=== PATIENT | female | born 1950 | race Caucasian/White ===

== ENCOUNTER 2024-08-06 16:27 | Emergency (ER) | payer MEDICARE, OTHER ==
[~2024-08-06] VITALS: Ht 152.4 cm; Wt 49.0 kg
[2024-08-06 16:33] VITALS: BP 136/85; PULSE 98; RESP 16; TEMP 37.2; O2SAT 99
[2024-08-06 19:14] LABS: BASOPHILS % 0.6 % (0.0-2.0); EOSINOPHILS % 0.3 % (0.0-5.0); LYMPHOCYTES % 9.1 % (20.0-50.0); MEAN CORPUSCULAR HEMOGLOBIN 32.3 pg (28.0-32.0); MEAN CORPUSCULAR HGB CONC 34.1 g/dL (31.0-37.0); MEAN CORPUSCULAR VOLUME 94.6 fL (81.0-99.0); MEAN PLATELET VOLUME 7.8 fl (7.4-10.4); MONOCYTES % 3.8 % (2.0-8.0); NEUTROPHILS % 86.2 % (40.0-76.0); PLATELET 294 x1000/uL (130-400); RED BLOOD CELL COUNT 4.66 mill/uL (4.2-5.4); RED CELL DISTRIBUTION WIDTH 13.5 % (11.6-14.6); WHITE BLOOD COUNT 10.7 x1000/uL (4.5-11.0)
[2024-08-06 19:35] LABS: CHLORIDE 107 mEq/L (98-107); POTASSIUM 4.6 mEq/L (3.5-5.1); SODIUM 142 mEq/L (136-145)
[2024-08-06 19:36] LABS: CALCIUM 9.7 mg/dL (8.7-10.4); CARBON DIOXIDE 28 mEq/L (21-32)
[2024-08-06 19:41] LABS: CREATININE 0.7 mg/dL (0.6-1.0); GLUCOSE 142 mg/dL (70-105); TROPONIN I HIGH SENSITIVITY 5 ng/L (3.0-34); UREA NITROGEN BLOOD 21 mg/dL (9-23)
[2024-08-06] MEDS ORDERED: IBUP-2029 MT (20:53)
[2024-08-06] MEDS: IBUPROFEN 600MG TABLET PO ONE (21:03)
== END 2024-08-06 21:04 | disposition home or self-care (01) ==
LOC: ER 16:27
DX: R07.89 Other chest pain (principal); I10 Essential (primary) hypertension; E78.00 Pure hypercholesterolemia, unspecified; V43.52XA Car driver injured in collision with other type car in traffic accident, initial encounter; Y93.89 Activity, other specified; Y92.89 Other specified places as the place of occurrence of the external cause; Y99.8 Other external cause status
CPT/HCPCS: 36415; 71045; 80048; 83880; 84484; 85025; 93005; 99285